=== PATIENT | male | born 1965 | race Caucasian/White ===

== ENCOUNTER 2016-10-03 20:42 | Emergency (ER) | payer OTHER ==
[~2016-10-03] VITALS: Ht 188 cm; Wt 91.0 kg
[2016-10-03 20:58] VITALS: BP 148/77; PULSE 71; RESP 20; TEMP 97.5; O2SAT 100
[2016-10-03 21:36] VITALS: BP 148/77; PULSE 71; RESP 18; TEMP 97.5; O2SAT 100
[2016-10-03] MEDS ORDERED: SODIUM CHLOR 0.9% 1000 ML INJ 1,000 ML IV ONE (21:53)
[2016-10-03] MEDS ORDERED: ONDANSETRON HCL 4 MG/2 ML VIAL IVP ONE (22:00)
[2016-10-03] MEDS ORDERED: SODIUM CHLORIDE 0.9% FLUSH 10 ML FLUSH IVF PRN (22:00)
[2016-10-03] MEDS ORDERED: KETOROLAC TROMETHAMINE 30 MG/ML (IVP) VIAL IV PUSH ONE (22:00)
[2016-10-03] MEDS ORDERED: HYDROmorphone HCL PF 1 MG/ML VIAL IV PUSH ONE (22:00)
--- NOTE | 2016-10-03 22:15 | PD ---
HPI Chief Complaint: Flank/Kidney Pain Time Seen by Provider: 21:53 Travel History International Travel<30 days: No Contact w/Intl Traveler<30days: No Traveled to known affect area: No History of Present Illness HPI 51-year-old male presents to the emergency department by private transportation with complaint of sudden onset left flank pain radiating to the left lower quadrant. Patient's had nausea without vomiting. Patient does have history of kidney stones. No reported fever or chills. No report of hematuria. Patient denies any injury. She denies any generalized abdominal pain. No chest pain or shortness of breath. Pain is severe. Patient has taken no medications prior to arrival to the emergency department. No history of hypertension or dyslipidemia or tobaccoism. PFS Past Medical History Narrative Medical Kidney stones; inguinal herniorrhaphy; nursing notes reviewed Diminished Hearing: No Hiatal Hernia: Yes Kidney Stones: Yes Tetanus Vaccination: Unknown ?: Not Past Surgical History Other Surgery: Yes (HERNIA REPAIR) Social History Alcohol Use: No Tobacco Use: No Substance Use: No Allergies-Medications (Allergen,Severity, Reaction): Coded Allergies: Erythromycin (Verified Adverse Reaction, Severe, Nausea/Vomiting, 10/03/16) Reported Meds & Prescriptions Reported Meds & Active Scripts Active Ibuprofen 800 Mg Tab 800 Mg PO Q8H PRN Zofran Odt (Ondansetron Odt) 4 Mg Tab 4 Mg SL Q6HR PRN Lortab (Hydrocodone-Acetaminophen) 5-325 Mg Tab 1 Tab PO Q6H PRN Flomax (Tamsulosin HCl) 0.4 Mg Cap 0.4 Mg PO HS Review of Systems Except as stated in HPI: all other systems reviewed are Neg Physical Exam Narrative GENERAL: Well-developed well-nourished male in no respiratory distress in obvious discomfort SKIN: Warm and dry. HEAD: Normocephalic. EYES: No scleral icterus. No injection or drainage. NECK: Supple, trachea midline. No JVD or lymphadenopathy. CARDIOVASCULAR: Regular rate and rhythm without murmurs, gallops, or rubs. RESPIRATORY: Breath sounds equal bilaterally. No accessory muscle use. GASTROINTESTINAL: Abdomen soft, mild left lower quadrant tenderness to direct palpation without guarding or rebound, nondistended. No pulsatile mass. : Circumcised male with bilaterally descended testicles positive cremasteric reflex no inguinal hernia nontender to palpation no scrotal edema no testicular mass or tenderness to palpation; no urethral discharge. MUSCULOSKELETAL: No cyanosis, or edema. Radial and dorsalis pedis pulses 2+ to palpation bilaterally BACK: Nontender without obvious deformity. Left-sided CVA tenderness. Data Data Last Documented VS Vital Signs Date Time Temp Pulse Resp B/P Pulse Ox O2 Delivery O2 Flow Rate FiO2 10/04/16 00:04 69 18 125/70 97 Room Air 10/03/16 21:36 97.5 Orders Complete Blood Count With Diff (10/03/16 21:53) Basic Metabolic Panel (Bmp) (10/03/16 21:53) Urinalysis - C+S If Indicated (10/03/16 21:53) Ecg Monitoring (10/03/16 21:53) Iv Access Insert/Monitor (10/03/16 21:53) Ondansetron Inj (Zofran Inj) (10/03/16 22:00) Sodium Chloride 0.9% Flush (Ns Flush) (10/03/16 22:00) Sodium Chlor 0.9% 1000 Ml Inj (Ns 1000 M (10/03/16 21:53) Ketorolac Inj (Toradol Inj) (10/03/16 22:00) Hydromorphone Pf Inj (Dilaudid Pf Inj) (10/03/16 22:00) Ct Abd/Pel W/O Iv Contrast (10/03/16 ) Tamsulosin (Flomax) (10/04/16 00:15) Labs Laboratory Tests Test 10/03/16 10/04/16 21:35 00:14 White Blood Count 9.8 TH/MM3 Red Blood Count 4.99 MIL/MM3 Hemoglobin 14.6 GM/DL Hematocrit 43.5 % Mean Corpuscular Volume 87.2 FL Mean Corpuscular Hemoglobin 29.3 PG Mean Corpuscular Hemoglobin 33.6 % Concent Red Cell Distribution Width 13.1 % Platelet Count 180 TH/MM3 Mean Platelet Volume 8.6 FL Neutrophils (%) (Auto) 79.5 % Lymphocytes (%) (Auto) 14.2 % Monocytes (%) (Auto) 5.6 % Eosinophils (%) (Auto) 0.5 % Basophils (%) (Auto) 0.2 % Neutrophils # (Auto) 7.9 TH/MM3 Lymphocytes # (Auto) 1.4 TH/MM3 Monocytes # (Auto) 0.5 TH/MM3 Eosinophils # (Auto) 0.0 TH/MM3 Basophils # (Auto) 0.0 TH/MM3 CBC Comment DIFF FINAL Differential Comment Sodium Level 136 MEQ/L Potassium Level 3.4 MEQ/L Chloride Level 100 MEQ/L Carbon Dioxide Level 27.3 MEQ/L Anion Gap 9 MEQ/L Blood Urea Nitrogen 18 MG/DL Creatinine 1.40 MG/DL Estimat Glomerular Filtration 54 ML/MIN Rate Random Glucose 134 MG/DL Calcium Level 9.0 MG/DL Urine Color YELLOW Urine Turbidity CLEAR Urine pH 7.5 Urine Specific [place] 1.018 Urine Protein NEG mg/dL Urine Glucose (UA) NEG mg/dL Urine Ketones TRACE mg/dL Urine Occult Blood NEG Urine Nitrite NEG Urine Bilirubin NEG Urine Leukocyte Esterase NEG Urine Squamous Epithelial 0-5 /hpf Cells Urine Hyaline Casts 0-2 /lpf Urine Mucus OCC /lpf Microscopic Urinalysis Comment CULT NOT INDICATED MDM Medical Decision Making Medical Screen Exam Complete: Yes Emergency Medical Condition: Yes Medical Record Reviewed: Yes Interpretation(s) UA: wnl Last Impressions Abdomen/Pelvis CT 10/03/16 0000 Signed Impressions: Service Date/Time: Monday, October 03, 2016 22:37 - CONCLUSION: 1. Nonobstructing left renal calculi and 1.7 mm left distal ureteral calculus with mild left hydronephrosis, hydroureter and perinephric stranding. 2. Cholelithiasis. Rory Thacker MD CBC & BMP Diagram 10/03/16 21:35 Vital Signs Date Time Temp Pulse Resp B/P Pulse Ox O2 Delivery O2 Flow Rate FiO2 10/03/16 22:39 18 10/03/16 21:36 97.5 71 18 148/77 100 Room Air 10/03/16 21:36 71 18 10/03/16 20:58 97.5 71 20 148/77 100 Differential Diagnosis Flank pain, obstructive uropathy, also to consider abdominal aortic aneurysm diverticulitis skeletal pain Narrative Course IV access obtained specimens collected and sent for resulting patient administered 1 L normal saline bolus, Zofran 4 mg IV, Dilaudid 1 mg IV, Toradol 30 mg IV and pelvis kidney stone protocol noncontrast ordered Patient resting quietly waiting on CT CT performed and is consistent with 2 left nephrolithiasis nonobstructing; left-sided hydronephrosis hydroureter with a distal 1.7 mm ureterolithiasis Urinalysis no bacteria nitrites leukocyte Estrace or white blood cells; culture not indicated Patient is stable for outpatient management and follow-up with urology and primary care provider as needed; patient is comfortable and asymptomatic at this time and stable for medications to be taken by mouth as an outpatient and further workup as an outpatient will discharge to home at this time. Diagnosis Primary Impression: Obstructive uropathy Additional Impression: Ureterolithiasis Referrals: Urologist call for appointment Patient Instructions: Narcotic given in the ED, General Instructions Additional Instructions: Increase fluid hydration Take medications as prescribed Strain all urine Follow-up with urologist; on-call physician Dr. Lazo Return to the emergency department for any concerns or change in condition Med/Other Pt SpecificInfo: Prescription(s) given Scripts Ibuprofen 800 Mg [id number] Mg PO Q8H PRN (PAIN GREATER THAN 5) #12 TAB Ref 0 Prov:Nimco Walter MD 10/04/16 Ondansetron Odt (Zofran Odt)4 Mg Tab4 Mg SL Q6HR PRN (Nausea/Vomiting) #10 TAB Ref 0 Prov:Nimco Walter MD 10/04/16 Hydrocodone-Acetaminophen (Lortab)5-325 Mg Tab1 Tab PO Q6H PRN (PAIN) #10 TAB Ref 0 Prov:Nimco Walter MD 10/04/16 Tamsulosin (Flomax)0.4 Mg Cap0.4 Mg PO HS #7 CAP Ref 0 Prov:Nimco Walter MD 10/04/16 Disposition: 01 DISCHARGE HOME Condition: Stable Nimco Walter MD Oct 03, 2016 22:15
[2016-10-03 22:21] LABS: AUTOMATED NEUTROPHIL # 7.9 TH/MM3 (1.8-7.7); BASOPHIL % 0.2 % (0.0-2.0); EOSINOPHIL % 0.5 % (0.0-4.0); HEMATOCRIT 43.5 % (39.0-51.0); HEMO FLAGS DIFF FINAL; LYMPH % 14.2 % (9.0-44.0); LYMPHOCYTE # 1.4 TH/MM3 (1.0-4.8); MEAN CELL VOLUME 87.2 FL (80.0-100.0); MEAN CORPUSCULAR HEMOGLOBIN 29.3 PG (27.0-34.0); MEAN CORPUSCULAR HGB CONC 33.6 % (32.0-36.0); MONO % 5.6 % (0.0-8.0); NEUT % 79.5 % (16.0-70.0); PLATELET COUNT 180 TH/MM3 (150-450); RED BLOOD COUNT 4.99 MIL/MM3 (4.50-5.90); RED CELL DISTRIBUTION WIDTH 13.1 % (11.6-17.2); WHITE BLOOD COUNT 9.8 TH/MM3 (4.0-11.0)
[2016-10-03 22:38] LABS: POTASSIUM 3.4 MEQ/L (3.5-5.1)
[2016-10-03 22:41] LABS: BICARBONATE 27.3 MEQ/L (21.0-32.0)
--- NOTE | 2016-10-03 23:10 | RADRPT ---
EXAM DATE/TIME: 10/03/2016 22:37 [facility] COMPARISON: CT ABDOMEN & PELVIS W/O CONTRAST, May 18, 2015, 20:02. INDICATIONS : Left flank pain with nausea and vomiting. ORAL CONTRAST: No oral contrast ingested. RADIATION DOSE: 16.54 CTDIvol (mGy) MEDICAL HISTORY : Renal calculi. SURGICAL HISTORY : None. ENCOUNTER: Initial ACUITY: 1 day PAIN SCALE: 5/10 LOCATION: Left flank TECHNIQUE: Volumetric scanning of the abdomen and pelvis was performed. Using automated exposure control and ad justment of the mA and/or kV according to patient size, radiation dose was kept as low as reasonably achievable to obtain optimal diagnostic quality images. DICOM format image data is available electro nically for review and comparison. FINDINGS: No pleural or pericardial effusions. Cholelithiasis is noted. Liver, pancreas, visualized portions of the spleen, right kidney, adrenal glands are normal. There is a 2 mm nonobstructing left upper pole renal calculus. There is mild left-sided hydronephrosis and perinephric stranding. 2 mm left mid pole renal calculus. There is mild left-sided ureteral dilatation, and a stone is present 3 mm proximal t o the ureterovesical junction measuring 1.7 mm. The bladder, prostate, small and large bowel are unre markable. Appendix normal. No adenopathy or aneurysm. Osseous structures demonstrate L5 spondylolysis . CONCLUSION: 1. Nonobstructing left renal calculi and 1.7 mm left distal ureteral calculus with mild left hydronep hrosis, hydroureter and perinephric stranding. 2. Cholelithiasis. Rory Thacker MD on October 03, 2016 at 23:06 Board Certified Radiologist. This report was verified electronically.
[2016-10-04 00:04] VITALS: BP 125/70; PULSE 69; RESP 18; O2SAT 97
[2016-10-04] MEDS ORDERED: HYDR-3533 PO (00:05)
[2016-10-04] MEDS ORDERED: IBUP800T23 PO (00:05)
[2016-10-04] MEDS ORDERED: ZOFR4TAB3 SL (00:05)
[2016-10-04] MEDS ORDERED: TAMS5CAP PO (00:05)
[2016-10-04] MEDS ORDERED: TAMSULOSIN HCL 0.4 MG CAP PO ONE (00:15)
[2016-10-04 00:21] LABS: BLOOD, URINE NEG (NEG); GLUCOSE,URINE NEG (NEG); KETONE, URINE TRACE mg/dL (NEG); NITRITE,URINE NEG (NEG); PH, URINE 7.5 (5.0-8.5)
[2016-10-04 00:27] LABS: URINE COLOR YELLOW (YELLW/STRAW)
[2016-10-04 00:28] LABS: MUCUS URINE OCC /lpf (OCC)
[2016-10-04 00:29] LABS: COMMENT (UR) CULT NOT INDICATED; CULTURE IF INDICATED CULT NOT INDICATED; HYALINE CAST, URINE 0-2 /lpf (RARE); SQUAMOUS EPITHELIAL CELL URINE 0-5 /hpf (0-5)
== END 2016-10-04 01:00 | disposition home or self-care (01) ==
LOC: PHED 20:42
DX: N13.9 Obstructive and reflux uropathy, unspecified (principal); N13.2 Hydronephrosis with renal and ureteral calculous obstruction
CPT/HCPCS: 74176; 80048; 81001; 85025; 96361; 96374; 96375; 99285; J1170; J1885; J2405; J7030